=== PATIENT | female | born 2000 | race African-American/Black ===

== ENCOUNTER 2019-02-16 11:16 | Emergency (ER) | payer MEDICAID, MEDICARE ==
[~2019-02-16] VITALS: Ht 154.9 cm; Wt 36.0 kg
[2019-02-16] MEDS ORDERED: SODIUM CHLORIDE 0.9% 1,000 ML IV ONE ×2 (12:19→13:33)
[2019-02-16 12:53] LABS: BASOPHILS % 0.7 % (0.0-2.0); EOSINOPHILS % 0.1 % (0.0-5.0); HEMATOCRIT. 40.2 % (36.0-48.0); HEMOGLOBIN. 13.9 g/dL (12.0-16.0); LYMPHOCYTES % 20.6 % (20.0-50.0); MEAN CORPUSCULAR HEMOGLOBIN 30.8 pg (28.0-32.0); MEAN PLATELET VOLUME 6.9 fl (7.4-10.4); MONOCYTES % 5.9 % (2.0-8.0); NEUTROPHILS % 72.7 % (40.0-76.0); PLATELET 353 x1000/uL (130-400); RED BLOOD CELL COUNT 4.52 mill/uL (4.2-5.4); RED CELL DISTRIBUTION WIDTH 12.7 % (11.6-14.6)
[2019-02-16 12:54] LABS: CLARITY URINE CLOUDY (CLEAR); COLOR URINE YELLOW (YELLOW); KETONES URINE 4+ (NEGATIVE); LEUKOCYTE ESTERASE URINE 3+ (NEGATIVE); NITRITE URINE NEGATIVE (NEGATIVE); OCCULT BLOOD URINE NEGATIVE (NEGATIVE); PH URINE 6.5 (4.5-8.0); PROTEIN URINE TRACE (NEGATIVE); SPECIFIC GRAVITY URINE 1.023 (1.005-1.030)
[2019-02-16 12:59] LABS: CHLORIDE 102 mEq/L (98-107)
[2019-02-16 13:23] LABS: B-HCG QUANTITATIVE 122539 mIU/mL (<3)
[2019-02-16] MEDS ORDERED: CEFTRIAXONE 1 G PREMIX 50 ML IV ONE (13:30)
[2019-02-16] MEDS ORDERED: ONDANSETRON HCL 4MG/2ML INJ IV ONE (13:45)
[2019-02-16 16:24] VITALS: BP 110/52
== END 2019-02-16 16:24 | disposition home or self-care (01) ==
LOC: ER 11:16
DX: N10 Acute pyelonephritis (principal)
CPT/HCPCS: 36415; 76801; 76817; 80053; 81003; 81025; 84702; 85025; 87077; 87086; 87186; 96365; 96375; 99284; J0696; J2405; J7030; Z7610

== ENCOUNTER 2019-06-12 09:50 | Emergency (ER) | payer MEDICARE ==
[~2019-06-12] VITALS: Ht 152.4 cm; Wt 41.0 kg
[2019-06-12 09:54] VITALS: BP 115/63
== END 2019-06-12 11:27 | disposition home or self-care (01) ==
LOC: ER 09:50
DX: S40.862A Insect bite (nonvenomous) of left upper arm, initial encounter (principal); S40.861A Insect bite (nonvenomous) of right upper arm, initial encounter; S80.862A Insect bite (nonvenomous), left lower leg, initial encounter; S80.861A Insect bite (nonvenomous), right lower leg, initial encounter; W57.XXXA Bitten or stung by nonvenomous insect and other nonvenomous arthropods, initial encounter; Y93.89 Activity, other specified; Y92.59 Other trade areas as the place of occurrence of the external cause
CPT/HCPCS: 99281

== ENCOUNTER 2019-08-11 13:34 | Observation (INO) | payer MEDICARE ==
[~2019-08-11] VITALS: Ht 152.4 cm; Wt 47.6 kg
[2019-08-11] MEDS ORDERED: PNV1TABL76 PO (13:53)
[2019-08-11] MEDS ORDERED: ACETAMINOPHEN 500MG TABLET PO NR (14:00)
== END 2019-08-11 17:40 | disposition home or self-care (01) ==
LOC: 8 EST LDRP 13:34
PROVIDERS: ADMIT Obstetrics & Gynecology; ATTEND Obstetrics & Gynecology
DX: O9A.212 Injury, poisoning and certain other consequences of external causes complicating pregnancy, second trimester (principal); R10.31 Right lower quadrant pain; Z3A.35 35 weeks gestation of pregnancy; W10.9XXA Fall (on) (from) unspecified stairs and steps, initial encounter; Y93.89 Activity, other specified; Y92.89 Other specified places as the place of occurrence of the external cause; Y99.9 Unspecified external cause status
CPT/HCPCS: 76805; 76818; 99281; G0378

== ENCOUNTER 2019-08-11 18:01 | Emergency (ER) | payer MEDICARE ==
[~2019-08-11] VITALS: Ht 152.4 cm; Wt 48.0 kg
[~2019-08-11 18:01] MED LIST: PNV1TABL76 PO
[2019-08-11 21:55] VITALS: BP 112/59
== END 2019-08-11 22:12 | disposition home or self-care (01) ==
LOC: ER 18:01
DX: O9A.213 Injury, poisoning and certain other consequences of external causes complicating pregnancy, third trimester (principal); S40.011A Contusion of right shoulder, initial encounter; S30.1XXA Contusion of abdominal wall, initial encounter; W10.8XXA Fall (on) (from) other stairs and steps, initial encounter; Y93.89 Activity, other specified; Y92.89 Other specified places as the place of occurrence of the external cause; Y99.8 Other external cause status; Z3A.35 35 weeks gestation of pregnancy; Z87.440 Personal history of urinary (tract) infections
CPT/HCPCS: 99283

== ENCOUNTER 2019-08-22 23:10 | Observation (INO) | payer MEDICARE ==
[~2019-08-22] VITALS: Ht 152.4 cm; Wt 47.6 kg
[2019-08-22] MEDS ORDERED: LACTATED RINGERS 1,000 ML IV SCH (23:54)
[2019-08-23 00:30] LABS: CLARITY URINE TURBID (CLEAR); COLOR URINE YELLOW (YELLOW); KETONES URINE NEGATIVE (NEGATIVE); LEUKOCYTE ESTERASE URINE 3+ (NEGATIVE); NITRITE URINE POSITIVE (NEGATIVE); OCCULT BLOOD URINE TRACE (NEGATIVE); PH URINE 7.5 (4.5-8.0); PROTEIN URINE TRACE (NEGATIVE); SPECIFIC GRAVITY URINE 1.012 (1.005-1.030)
== END 2019-08-23 00:45 | disposition home or self-care (01) ==
LOC: 8 EST LDRP 23:10
PROVIDERS: ADMIT Obstetrics & Gynecology; ATTEND Obstetrics & Gynecology
DX: O26.893 Other specified pregnancy related conditions, third trimester (principal); R10.30 Lower abdominal pain, unspecified; M54.9 Dorsalgia, unspecified; R12 Heartburn; Z3A.36 36 weeks gestation of pregnancy
CPT/HCPCS: 81003; 87077; 87086; 87186; 99281; G0378; 96360

== ENCOUNTER 2019-09-13 22:13 | Observation (INO) | payer MEDICARE, MEDICAID ==
[2019-09-14] MEDS ORDERED: SODIUM CHLORIDE 0.9% 1,000 ML IV ONE (00:15)
[2019-09-14] MEDS ORDERED: SODIUM CHLORIDE 0.9% 1,000 ML IV NR (09:45)
== END 2019-09-14 06:40 | disposition home or self-care (01) ==
LOC: 8 EST LDRP 22:13
PROVIDERS: ADMIT Obstetrics & Gynecology; ATTEND Obstetrics & Gynecology
DX: O62.9 Abnormality of forces of labor, unspecified (principal); Z3A.39 39 weeks gestation of pregnancy
CPT/HCPCS: 76815; 76818; 99281; G0378; 96360; 96361